=== PATIENT | female | born 1950 | race Caucasian/White ===

== ENCOUNTER 2019-06-18 06:40 | Day surgery (SDC) | payer MEDICARE, MEDICAID ==
[2019-06-16 13:03] LABS: HEMATOCRIT 38.8 % (36.0-48.0); HEMOGLOBIN 12.9 g/dL (12-16); MCH 30.1 pg (26.0-34.0); MCHC 33.2 g/dL (31.0-37.0); MCV 90.7 fL (80.0-100.0); MEAN PLATELET VOLUME 9.5 fL (7.4-10.4); RBC 4.28 10x6/uL (4.00-5.40); RDW 12.6 % (11.5-14.5)
[~2019-06-18] VITALS: Ht 162.6 cm; Wt 106.6 kg
[2019-06-18] MEDS ORDERED: ULTRAM50 MG (07:25)
[2019-06-18] MEDS ORDERED: GABAPENTIN300 MG PO (07:25)
[2019-06-18] MEDS ORDERED: CELEXA20 MG PO (07:26)
[2019-06-18] MEDS ORDERED: OXYBUTYNIN CHLOR5 MG PO (07:26)
[2019-06-18] MEDS ORDERED: VALSARTAN-HCTZ1 EAC4 PO (07:27)
[2019-06-18] MEDS ORDERED: DEXILANT60 MG PO (07:27)
[2019-06-18] MEDS ORDERED: MOBIC7.5 MG PO (07:28)
[2019-06-18] MEDS ORDERED: TYLENOL W/CODEI1 TAB PO (07:28)
[2019-06-18 07:41] VITALS: BP 134/67; Ht 162.6 cm; Wt 106.6 kg
[2019-06-18] MEDS ORDERED: HYDROCODON-ACE1 EAC7 PO (11:43)
--- NOTE | 2019-06-18 13:25 | NUR ---
1256 IV DC'D. CATHETER TIP INTACT. NO BLEEDING OR SWELLING AT SITE AFTER HOLDING PRESSURE. BANDAID APPLIED. 1305 PT DRESSED. ASSISTED PT TO BR. 1310 PT VOIDED WITHOUT DIFFICULTY. ASSISTED PT TO FOR DISCHARGE HOME. PT VOICES UNDERSTANDING OF DISCHARGE INSTRUCTIONS.
== END 2019-06-18 13:14 | disposition home or self-care (01) ==
LOC: D.OPS 06:40 → D.PAN 08:30 → D.OPS 08:30
PROVIDERS: Anesthesiology; ATTEND Podiatrist Foot & Ankle Surgery
DX: M21.612 Bunion of left foot (principal); M20.42 Other hammer toe(s) (acquired), left foot